=== PATIENT | male | born 1990 | race Caucasian/White ===

== ENCOUNTER 2022-12-10 15:58 | Emergency (ER) | payer SELFPAY ==
[2022-12-10 16:00] VITALS: BP 116/70; PULSE 90; RESP 18; TEMP 36.8; O2SAT 99; BMI 31.8
[2022-12-10 16:04] VITALS: BP 116/70; PULSE 88; RESP 20; O2SAT 100
--- NOTE | 2022-12-10 16:23 | XR_ITS ---
PROCEDURE INFORMATION: Exam: XR Left Knee Exam date and time: 12/10/2022 4:18 PM Age: 32 years old Clinical indication: Pain; Knee; Left; Additional info: Pain from injury. Medial and lateral sided knee pain TECHNIQUE: Imaging protocol: Radiologic exam of the left knee. Views: 3 views. Total images: 3 COMPARISON: No relevant prior studies available. FINDINGS: Bones/joints: No evidence of acute fracture or dislocation. Soft tissues: Soft tissues are within normal limits. IMPRESSION: No evidence of acute fracture or dislocation.
--- NOTE | 2022-12-10 17:07 | HMH.EDLOEX ---
Discharge Plan Disposition Patient Disposition: Home, Self-Care Prescriptions Prescriptions: New naproxen 375 mg tablet 375 mg PO BID Qty: 30 0RF Referrals Follow up/Referrals: Provider,Referral, [Primary Care Provider] - See instructions Clinical Impressions Clinical Impression: Injury of knee, left Discharge ED Provider: Robert Austin Lower Extremity Injury HPI General Chief Complaint: Extremity Injury, Lower Stated Complaint: Left knee pain Time Seen by Provider: 12/10/22 16:37 Mode of Arrival: Wheelchair Source of Information: Patient Limitations: No Limitations Description of Symptoms (Recalled from ER Triage Doc. by RN): pt c/o L knee pain r/t hitting self in knee x1 yesterday and x1 today with a hammer while at work. Pt reports painful to bear weight and painful with movement. Pt denies numbness/tingling or decreased sensation. History of Present Illness HPI Narrative: 32-year-old white male struck himself twice in the left knee over the last 2 days. He is having pain with range of motion. 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 He does admit to smoking marijuana every day. He has no known drug allergies Related Data Previous Rx's Medication Instructions Recorded naproxen 375 mg tablet 375 mg PO BID #30 tabs 12/10/22 Allergies Allergy/AdvReac Type Severity Reaction Status Date / Time No Known Allergies Allergy Verified 12/10/22 16:23 [facility] Disclaimer: The information contained in this section may have been updated after the patient was seen, as this information can be updated by other users. Social History Smoking Status: Unknown if ever smoked alcohol intake: current current occupational status: employed Travel in the last 8 weeks: None ROS Obtained: Yes Systems reviewed as appropriate & no additional complaints except as documented Physical Exam General General appearance: alert and in no apparent distress Head Head exam: atraumatic and normocephalic Eye Eye exam: Present normal appearance, PERRL and EOMI Respiratory Respiratory exam: Present normal lung sounds bilaterally and respiratory distress Cardiovascular Cardiovascular exam: Present regular rate and normal rhythm Abdominal Exam Abdominal exam: Present soft and distention Extremities Exam Extremities exam: Present tenderness (Patient has tenderness surrounding his left knee and is also complaining of pain with extension of the knee as well. The capsule is not swollen.) Neurological Exam Neurological exam: Present alert, oriented X3 and CN II-XII intact Medical Decision Making Medical Records MR Comment: 32-year-old white's male who struck himself in the left knee with a hammer twice in the last 2 days. He works as a optometric technologist and has admitted to daily habit of marijuana smoking. The patient is tender and has decreased range of motion. Evaluation has included a left knee x-ray which is interpreted as normal. Therapeutically he is treated with Toradol 60 mg intramuscularly and he will be followed up with naproxen 375 p.o. twice daily. He is to see his primary care provider within the next week José Miguel Inquiry Pt receiving controlled substance: No Vital Signs: 12/10/22 16:00 12/10/22 16:04 Temperature 98.3 F Temperature Source Oral Pulse Rate 88 Pulse Rate [Left Radial] 90 Respiratory Rate 18 20 Blood Pressure 116/70 Blood Pressure [Left Arm] 116/70 Blood Pressure Mean 80 Blood Pressure Mean [Left Arm] 85 Blood Pressure Source [Left Arm] Automatic Cuff Blood Pressure Position [Left Arm] Sitting 02 Sat by Pulse Oximetry 99 100 Oxygen Delivery Method Room Air Orders (Tests/Meds): ED MEDICATIONS Discontinued Medications Generic Name Dose Route Start Last Admin Trade Name Freq PRN Reason Stop Dose Admin Acetaminophen 1,000 mg 12/10/22 16:23 12/10/22 16:46 Acet
[2022-12-10 17:17] VITALS: BP 139/89; PULSE 97; RESP 18; TEMP 36.7; O2SAT 98
== END 2022-12-10 17:17 | disposition home or self-care (01) ==
PROVIDERS: Emergency Provider Emergency Medicine
DX: M25.562 Pain in left knee (principal); W22.8XXA Striking against or struck by other objects, initial encounter
CPT/HCPCS: 73562; 96372; 99283; 99284